=== PATIENT | male | born 1965 | race Caucasian/White ===

== ENCOUNTER → 2021-04-05 15:49 | Outpatient (CLI) | payer SELFPAY ==
--- NOTE | ~2021-04-05 | XR_ITS ---
XR chest 2V DATE: 04/05/2021 16:16 INDICATION: Wheezing. History of smoking. TECHNIQUE: 2 views COMPARISON: None FINDINGS: Normal heart size. No hilar or mediastinal enlargement. Mild hyperinflation of the lungs. No pulmonary infiltrate or consolidation, pleural effusion or pulmo nary vascular congestion or pneumothorax. IMPRESSION: Mild bilateral hyperinflation. No active cardiopulmonary disease Reviewed, dictated and finalized at location B.
== END ==
PROVIDERS: Visit Provider Nurse Practitioner
DX: R06.2 Wheezing (principal); Z87.891 Personal history of nicotine dependence; R91.8 Other nonspecific abnormal finding of lung field
CPT/HCPCS: 71046